=== PATIENT | male | born 1980 | race Caucasian/White ===

== ENCOUNTER 2016-07-05 17:57 | Emergency (ER) | payer BC, MEDICAID, OTHER ==
[2016-07-05 18:14] VITALS: BP 144/93
--- NOTE | 2016-07-05 18:31 | EDM.PDOC ---
ED HPI Trauma - General Chief Complaint: Upper Extremity Injury/Pain Stated Complaint: HURT HAND Time Seen by Provider: 07/05/16 18:20 Source: Reports: Patient History Limitations: Reports: No limitations - History of Present Illness INITIAL COMMENTS - FREE TEXT/NARRATIVE: 35-year-old male struck the top of his dogs head with the flexor surface of his wrist and developed sudden swelling and discomfort. This happened within the last hour, it is now much better but it worried him. He has no weakness of the hand and only minimal pain. Occurred When: just prior to arrival Occurred Where: home Severity: mild Pain/Injury Location: Reports: upper extremity, right Allergies/ADRs: Allergies No Known Allergies Allergy (Verified 07/05/16 18:01) Home Medications: Ambulatory Orders Gabapentin [Neurontin] 300 mg PO DAILY 07/05/16 [Confirmed 07/05/16] Past Medical History - Past Health History Medical/Surgical History: Denies Medical/Surgical History HEENT History: Reports: Impaired vision Neurological History: Reports: Concussion, Head trauma, Other (see below) Other Neuro History: fx skull Hematologic History: Reports: Blood transfusion(s) - Infectious Disease History Infectious Disease History: Reports: Chicken pox - Past Surgical History Neurological Surgical History: Reports: Other (see below) Other Neurological Surgeries/Procedures: cranial surgery x2 Social & Family History - Tobacco Use Smoking Status *Q: Current Every Day Smoker Years of Tobacco use: 15 Packs/Tins Daily: 1 Used Tobacco, but Quit: No Second Hand Smoke Exposure: Yes - Caffeine Use Caffeine Use: Reports: Coffee, Energy drinks, Soda - Alcohol Use Days Per Week of Alcohol Use: 0 - Recreational Drug Use Recreational Drug Use: No Review of Systems - Review of Systems Review Of Systems: See Below Eyes: Reports: no symptoms Respiratory: Reports: No Symptoms Skin: Denies: bruising Neurological: Reports: Other (Has chronic neurologic changes from a serious head injury 2 years ago) Psychiatric: Reports: no symptoms Trauma Exam - Physical Exam Exam: See Below Exam Limited By: No limitations General Appearance: Reports: alert, no apparent distress Respiratory Exam: Reports: no respiratory distress Extremities: Reports: other (Exam is otherwise limited to the right arm. He has a very small amount of swelling over the radial aspect of the flexor surface of the right wrist. No weakness or limitations of range of motion.) Course - Vital Signs Last Recorded V/S: Last Vital Signs Temp 96.0 F 07/05/16 18:18 Pulse 66 07/05/16 18:18 Resp 16 07/05/16 18:18 BP 144/93 H 07/05/16 18:18 Pulse Ox 99 07/05/16 18:18 - Re-Assessments/Exams Free Text/Narrative Re-Assessment/Exam: 07/05/16 18:29 This patient developed a hematoma which is already resolving. He is reassured. He can wrap it or put ice on it but it should improve quickly, he should expect some bruising. Departure - Departure Time of Disposition: 18:45 Disposition: Home, Self-Care 01 Condition: good Clinical Impression: Traumatic hematoma of right wrist Qualifiers: Encounter type: initial encounter Qualified Code(s): S60.211A - Contusion of right wrist, initial encounter Instructions: Hematoma, [id number] Referrals: Phli Ocasio MD [Primary Care Provider] - Forms: ED Department Discharge Care Plan Goals: Continue activity as tolerated. Local ice or pressure with an Gera wrap may be beneficial but probably not necessary. Return at any time if worsening or concerns.
== END 2016-07-05 18:40 | disposition home or self-care (01) ==
LOC: JP.ED 17:57
DX: S60.211A Contusion of right wrist, initial encounter (principal); Z79.899 Other long term (current) drug therapy; Z98.890 Other specified postprocedural states; W54.1XXA Struck by dog, initial encounter
CPT/HCPCS: 99283